=== PATIENT | male | born 1970 | race Caucasian/White ===

== ENCOUNTER 2017-07-09 16:36 | Emergency (ER) | payer BC, OTHER, SELFPAY ==
[2017-07-09] MEDS ORDERED: Sodium Chloride 0.9% 10 ML Syringe FLUSH PRN (16:39)
[2017-07-09] MEDS ORDERED: Sodium Chloride 0.9% 1,000 ML IV SCH (16:45)
[2017-07-09] MEDS ORDERED: HYDROmorphone 1 MG/ML Syringe IVPUSH ONE ×2 (16:46→16:52)
[2017-07-09] MEDS ORDERED: Ondansetron 4 MG/2 ML SDV IVPUSH ONE (16:48)
[2017-07-09 16:59] LABS: CHLORIDE,CL 104 mmol/L (98-107); SODIUM,NA 143 mmol/L (136-145)
--- NOTE | 2017-07-09 17:41 | EDM.PDOC ---
ED HPI GENERAL MEDICAL PROBLEM - General Chief Complaint: General Stated Complaint: left flank pain Time Seen by Provider: 07/09/17 16:50 Source of Information: Reports: Patient History Limitations: Reports: No Limitations - History of Present Illness INITIAL COMMENTS - FREE TEXT/NARRATIVE: Patient is a 47-year-old who was seen in the emergency room with chief complaint of left flank pain patient stated that he was working on his basement when all of a sudden patient developed severe left flank pain about 10 out of 10 he denies hematuria or any history of nephrolithiasis Onset: Sudden Duration: Minutes: Location: Reports: Abdomen Quality: Reports: Sharp Severity: Severe Improves with: Reports: Medication Worsens with: Reports: None Context: Reports: Sick Contact Associated Symptoms: Reports: Other (Severe left flank pain) Left Flank Pain Score (Numeric/FACES): 10 - Related Data Allergies Allergy/AdvReac Type Severity Reaction Status Date / Time bee pollen Allergy Shortness Verified 07/09/17 16:40 of Breath Home Meds: Home Meds . [No Known Home Meds] 07/09/17 [History] Past Medical History - Past Health History Medical/Surgical History: Denies Medical/Surgical History Social & Family History - Tobacco Use Smoking Status *Q: Current Every Day Smoker Years of Tobacco use: 25 Packs/Tins Daily: 1 - Caffeine Use Caffeine Use: Reports: Soda Other Caffeine Use: 'MAYBE A SODA EVERY 4 DAYS OR SO' - Alcohol Use Days Per Week of Alcohol Use: 3 Number of Drinks Per Day: 6 Total Drinks Per Week: 18 - Recreational Drug Use Recreational Drug Use: No - Living Situation & Occupation Living situation: Reports: Single, Other Occupation: Employed ED ROS GENERAL - Review of Systems Review Of Systems: See Below Constitutional: Reports: No Symptoms HEENT: Reports: No Symptoms Respiratory: Reports: No Symptoms Cardiovascular: Reports: No Symptoms Endocrine: Reports: No Symptoms GI/Abdominal: Reports: No Symptoms : Reports: No Symptoms Musculoskeletal: Reports: No Symptoms Skin: Reports: No Symptoms Neurological: Reports: No Symptoms Psychiatric: Reports: No Symptoms Hematologic/Lymphatic: Reports: No Symptoms Immunologic: Reports: No Symptoms ED EXAM, GENERAL - Physical Exam Exam: See Below Exam Limited By: No Limitations General Appearance: Alert, WD/WN, No Apparent Distress Ears: Normal External Exam, Normal Canal, Hearing Grossly Normal, Normal TMs Nose: Normal Inspection, Normal Mucosa, No Blood Throat/Mouth: Normal Inspection, Normal Lips, Normal Teeth, Normal Gums, Normal Oropharynx, Normal Voice, No Airway Compromise Head: Atraumatic, Normocephalic Neck: Normal Inspection, Supple, Non-Tender, Full Range of Motion Respiratory/Chest: No Respiratory Distress, Lungs Clear, Normal Breath Sounds, No Accessory Muscle Use, Chest Non-Tender Cardiovascular: Normal Peripheral Pulses, Regular Rate, Rhythm, No Edema, No Gallop, No JVD, No Murmur, No Rub GI/Abdominal: Normal Bowel Sounds, Tender, Other (CVA tenderness to percussion and palpation) (Male) Exam: Deferred Rectal (Males) Exam: Deferred Back Exam: CVA Tenderness (L) Extremities: Normal Inspection, Normal Range of Motion, Non-Tender, Normal Capillary Refill, No Pedal Edema Neurological: Alert, Oriented, CN II-XII Intact, Normal Cognition, Normal Gait, Normal Reflexes, No Motor/Sensory Deficits Psychiatric: Normal Affect, Normal Mood Skin Exam: Warm, Dry, Intact, Normal Color, No Rash Lymphatic: No Adenopathy Course - Vital Signs Last Recorded V/S: Last Vital Signs Temp 97.7 F 07/09/17 17:54 Pulse 89 07/09/17 17:54 Resp 20 07/09/17 16:41 BP 144/94 H 07/09/17 17:54 Pulse Ox 100 07/09/17 17:54 - Orders/Labs/Meds Labs: Laboratory Tests 07/09/17 07/09/17 Range/Units 16:40 16:40 WBC 12.5 H (4.0-10.2) K/uL RBC 4.89 (4.33-5.41) M/uL Hgb 14.7 (13.1-16.8) g/dL Hct 42.1 (39.0-49.0) % MCV 86.1 (84.0-98.0) fL MCH 30.1 (28.2-33.3) pg MCHC 34.9 (31.7-36.0) g/dL RDW 12.7 (11.2-14.1) % Plt Count 379 H D (150-350) K/uL Neut % (Auto) 61.0 (45.0-80.0) % Lymph % (Auto) 24.9 (10.0-50.0) % [place] % (Auto) 12.7 (2.0-14.0) % Eos % (Auto) 1.0 (0.0-5.0) % Baso % (Auto) 0.4 (0.0-2.0) % Neut # (Auto) 7.60 H (1.40-7.00) K/uL Lymph # (Auto) 3.10 (0.50-3.50) K/uL [place] # (Auto) 1.58 H (0.00-1.00) K/uL Eos # (Auto) 0.13 (0.00-0.50) K/uL Baso # (Auto) 0.05 (0.00-0.20) K/uL Sodium 143 (136-145) mmol/L Potassium 3.0 L (3.5-5.1) mmol/L Chloride 104 (98-107) mmol/L Carbon Dioxide 24.3 (21.0-32.0) mmol/L BUN 22 H (7-18) mg/dL Creatinine 1.10 (0.51-1.17) mg/dL Est Cr Clr Drug Dosing 76.53 mL/min Estimated GFR (MDRD) > 60 mL/min Glucose 133 H (74-106) mg/dL Calcium 9.8 (8.5-10.1) mg/dL Meds: Medications Discontinued Medications Generic Name Dose Route Start Last Admin Trade Name Freq PRN Reason Stop Dose Admin Hydromorphone HCl 22 mg 07/09/17 16:46 07/09/17 16:54 Dilaudid IVPUSH 07/09/17 16:47 Not Given ONETIME ONE Hydromorphone HCl 2 mg 07/09/17 16:52 07/09/17 16:55 Dilaudid IVPUSH 07/09/17 16:53 1 mg ONETIME ONE Administration Sodium Chloride 1,000 mls @ 999 mls/hr 07/09/17 16:45 07/09/17 16:54 Normal Saline IV 07/09/17 17:46 999 mls/hr ASDIRECTED YONI Administration Ketorolac Tromethamine 30 mg 07/09/17 17:44 07/09/17 17:51 Toradol IVPUSH 07/09/17 17:45 30 mg ONETIME ONE Administration Ondansetron HCl 4 mg 10/14/17 16:48 07/09/17 16:52 Zofran IVPUSH 07/09/17 16:49 4 mg ONETIME ONE Administration Sodium Chloride 10 ml 07/09/17 16:39 07/09/17 17:21 Saline Flush FLUSH 10 ml ASDIRECTED PRN Administration Keep Vein Open Departure - Departure Time of Disposition: 17:43 Disposition: Home, Self-Care 01 Condition: Fair Clinical Impression: Nephrolithiasis - Discharge Information Instructions: Kidney Stones, Hydromorphone injection, Ketorolac tablets Referrals: Rhys Sethi SHIRT SEWER [Primary Care Provider] - Forms: ED Department Discharge Care Plan Goals: Take Toradol 10 mg by mouth every 6 hours as needd for pain, your last dose was at 5:50pm. Strain urine if stone is found bring in to hospital lab or regular provider office.
[2017-07-09] MEDS ORDERED: Ketorolac 30 MG/ML SDV IVPUSH ONE (17:44)
[2017-07-09 17:56] VITALS: BP 144/94
== END 2017-07-09 18:00 | disposition home or self-care (01) ==
LOC: LL.ED 16:36
DX: N20.0 Calculus of kidney (principal); F17.210 Nicotine dependence, cigarettes, uncomplicated; Z91.030 Bee allergy status
CPT/HCPCS: 36415; 74176; 80048; 85025; 96361; 96374; 96375; 99284; J1170; J1885; J2405; J7030; J7050

== ENCOUNTER 2017-10-16 20:21 | Emergency (ER) | payer BC ==
[2017-10-16] MEDS ORDERED: Sodium Chloride 0.9% 10 ML Syringe FLUSH PRN (20:35)
[2017-10-16] MEDS ORDERED: Sodium Chloride 0.9% 1,000 ML IV ONE (20:36)
[2017-10-16] MEDS ORDERED: Ondansetron 4 MG/2 ML SDV IVPUSH ONE (20:36)
--- NOTE | 2017-10-16 20:59 | EDM.PDOC ---
ED HPI GENERAL MEDICAL PROBLEM - General Chief Complaint: Abdominal Pain Stated Complaint: abdominal pain Time Seen by Provider: 10/16/17 20:22 Source of Information: Reports: Patient, Family History Limitations: Reports: No Limitations - History of Present Illness INITIAL COMMENTS - FREE TEXT/NARRATIVE: Patient brought to ER by private vehicle for complaint of abdominal pain. Significant other and patient relate that he has had intermittent abdominal cramping starting yesterday. Has had single large loose stool yesterday and again today. Non-bloody in appearance. Nauseated but no emesis. No fevers. Had recent URI with some sinus congestion but denies sore throat/ear pain/cough/ SOB. No changes. No other pain complaints. Pain improved this morning for a while after he ate some pancakes. It also improves after passing gas or having a bowel movement. No worsening with eating or drinking. No one else sick at home. abdominal Pain Score (Numeric/FACES): 7 - Related Data Allergies Allergy/AdvReac Type Severity Reaction Status Date / Time bee pollen Allergy Shortness Verified 10/16/17 20:22 of Breath Home Meds: Home Meds Omeprazole [priLOSEC OTC] 3 tab PO ASDIRECTED 10/16/17 [History] Past Medical History Psychiatric History: Reports: Anxiety, Depression, Other (See Below) (Concern for Methamphetamine use) Social & Family History - Tobacco Use Smoking Status *Q: Current Every Day Smoker Years of Tobacco use: 25 Packs/Tins Daily: 1 - Caffeine Use Caffeine Use: Reports: Soda Other Caffeine Use: 'MAYBE A SODA EVERY 4 DAYS OR SO' - Alcohol Use Days Per Week of Alcohol Use: 3 Number of Drinks Per Day: 6 Total Drinks Per Week: 18 - Recreational Drug Use Recreational Drug Use: No - Living Situation & Occupation Living situation: Reports: Single, Other Occupation: Employed ED ROS GENERAL - Review of Systems Review Of Systems: See Below Constitutional: Reports: Malaise, Fatigue, Decreased Appetite. Denies: Fever, Chills, Weakness, Night Sweats, Diaphoresis HEENT: Reports: Sinus Problem (some congestion). Denies: Dental Pain, Ear Pain , Rhinitis, Throat Pain, Throat Swelling, Vertigo, Vision Change Respiratory: Reports: No Symptoms Cardiovascular: Reports: No Symptoms. Denies: Chest Pain Endocrine: Reports: No Symptoms GI/Abdominal: Reports: Abdominal Pain, Diarrhea, Decreased Appetite, Flatus, Nausea. Denies: Black Stool, Bloody Stool, Constipation, Difficulty Swallowing , Distension, Hematemesis, Hematochezia, Melena, Mucous in Stool, Stool Incontinence, Vomiting : Reports: No Symptoms Musculoskeletal: Reports: No Symptoms Skin: Reports: No Symptoms Neurological: Reports: No Symptoms. Denies: Headache Psychiatric: Reports: No Symptoms Hematologic/Lymphatic: Reports: No Symptoms ED EXAM, GI/ABD - Physical Exam Exam: See Below Exam Limited By: No Limitations General Appearance: Alert, WD/WN, Anxious, Mild Distress Eyes: Bilateral: Normal Appearance, EOMI Ears: Normal External Exam Nose: No: Nasal Deformity, Nasal Swelling, Nasal Drainage Throat/Mouth: Normal Inspection, Normal Lips, Normal Voice, No Airway Compromise Head: Atraumatic, Normocephalic Neck: Normal Inspection, Supple, Non-Tender, Full Range of Motion. No: Carotid Bruit, Lymphadenopathy (L), Lymphadenopathy (R) Respiratory/Chest: No Respiratory Distress, Lungs Clear, Normal Breath Sounds, No Accessory Muscle Use, Chest Non-Tender Cardiovascular: Normal Peripheral Pulses, Regular Rate, Rhythm, No Edema, No Murmur GI/Abdominal Exam: Soft, Non-Tender, No Distention, No Abnormal Bruit, Abnormal Bowel Sounds (diminished throughout) (Male) Exam: Deferred Rectal (Males) Exam: Deferred Back Exam: Normal Inspection, Full Range of Motion. No: CVA Tenderness (L), CVA Tenderness (R), Paraspinal Tenderness, Vertebral Tenderness Extremities: Normal Inspection, Normal Range of Motion, Non-Tender, No Pedal Edema, Normal Capillary Refill Neurological: Alert, Oriented, Normal Cognition, Normal Gait, No Motor/Sensory Deficits Psychiatric: Anxious Skin Exam: Warm, Dry, Intact, Normal Color, No Rash Lymphatic: No Adenopathy Course - Vital Signs Last Recorded V/S: Last Vital Signs Temp 36.9 C 10/16/17 20:25 Pulse 77 10/16/17 21:54 Resp 16 10/16/17 20:25 BP 151/117 H 10/16/17 21:54 Pulse Ox 100 10/16/17 21:34 - Orders/Labs/Meds Orders: Active Orders 24 hr Category Date Time Status Abdomen 2V AP Flat Upright [CR] Stat Exams 10/16/17 20:53 Ordered DRUG SCREEN, URINE [URCHEM] Stat Lab 10/16/17 20:22 Uncollected UA W/MICROSCOPIC [URIN] Stat Lab 10/16/17 20:22 Uncollected Sodium Chloride 0.9% [Saline Flush] Med 10/16/17 20:35 Ordered 10 ml FLUSH ASDIRECTED PRN Saline Lock Insert [OM.PC] Stat Oth 10/16/17 20:35 Ordered Medication Orders Sodium Chloride (Saline Flush) 10 ml FLUSH ASDIRECTED PRN PRN Reason: Keep Vein Open Labs: Laboratory Tests 10/16/17 10/16/17 10/16/17 Range/Units 20:48 20:48 20:48 WBC 6.7 (4.0-10.2) K/uL RBC 4.49 (4.33-5.41) M/uL Hgb 13.4 (13.1-16.8) g/dL Hct 39.1 (39.0-49.0) % MCV 87.1 (84.0-98.0) fL MCH 29.8 (28.2-33.3) pg MCHC 34.3 (31.7-36.0) g/dL RDW 13.2 (11.2-14.1) % Plt Count 238 D (150-350) K/uL Neut % (Auto) 65.6 (45.0-80.0) % Lymph % (Auto) 21.9 (10.0-50.0) % [place] % (Auto) 10.1 (2.0-14.0) % Eos % (Auto) 2.1 (0.0-5.0) % Baso % (Auto) 0.3 (0.0-2.0) % Neut # (Auto) 4.40 (1.40-7.00) K/uL Lymph # (Auto) 1.47 (0.50-3.50) K/uL [place] # (Auto) 0.68 (0.00-1.00) K/uL Eos # (Auto) 0.14 (0.00-0.50) K/uL Baso # (Auto) 0.02 (0.00-0.20) K/uL Sodium 142 (136-145) mmol/L Potassium 3.6 (3.5-5.1) mmol/L Chloride 104 (98-107) mmol/L Carbon Dioxide 25.0 (21.0-32.0) mmol/L BUN 12 (7-18) mg/dL Creatinine 0.82 (0.51-1.17) mg/dL Est Cr Clr Drug Dosing 98.96 mL/min Estimated GFR (MDRD) > 60 mL/min Glucose 102 (74-106) mg/dL Lactic Acid 0.8 (0.4-2.0) mmol/L Calcium 9.0 (8.5-10.1) mg/dL Total Bilirubin 0.7 (0.2-1.0) mg/dL AST 23 (15-37) U/L ALT 40 (12-78) U/L Alkaline Phosphatase 76 (46-116) IU/L Total Protein 6.9 (6.4-8.2) g/dL Albumin 3.8 (3.4-5.0) g/dL Amylase (25-115) U/L Ethyl Alcohol (0.000-0.080) g/dL 10/16/17 10/16/17 Range/Units 20:48 20:53 WBC (4.0-10.2) K/uL RBC (4.33-5.41) M/uL Hgb (13.1-16.8) g/dL Hct (39.0-49.0) % MCV (84.0-98.0) fL MCH (28.2-33.3) pg MCHC (31.7-36.0) g/dL RDW (11.2-14.1) % Plt Count (150-350) K/uL Neut % (Auto) (45.0-80.0) % Lymph % (Auto) (10.0-50.0) % [place] % (Auto) (2.0-14.0) % Eos % (Auto) (0.0-5.0) % Baso % (Auto) (0.0-2.0) % Neut # (Auto) (1.40-7.00) K/uL Lymph # (Auto) (0.50-3.50) K/uL [place] # (Auto) (0.00-1.00) K/uL Eos # (Auto) (0.00-0.50) K/uL Baso # (Auto) (0.00-0.20) K/uL Sodium (136-145) mmol/L Potassium (3.5-5.1) mmol/L Chloride (98-107) mmol/L Carbon Dioxide (21.0-32.0) mmol/L BUN (7-18) mg/dL Creatinine (0.51-1.17) mg/dL Est Cr Clr Drug Dosing mL/min Estimated GFR (MDRD) mL/min Glucose (74-106) mg/dL Lactic Acid (0.4-2.0) mmol/L Calcium (8.5-10.1) mg/dL Total Bilirubin (0.2-1.0) mg/dL AST (15-37) U/L ALT (12-78) U/L Alkaline Phosphatase (46-116) IU/L Total Protein (6.4-8.2) g/dL Albumin (3.4-5.0) g/dL Amylase 38 (25-115) U/L Ethyl Alcohol 0.003 (0.000-0.080) g/dL Meds: Medications Generic Name Dose Route Start Last Admin Trade Name Freq PRN Reason Stop Dose Admin Sodium Chloride 10 ml 10/16/17 20:35 Saline Flush FLUSH ASDIRECTED PRN Keep Vein Open Discontinued Medications Generic Name Dose Route Start Last Admin Trade Name Freq PRN Reason Stop Dose Admin Sodium Chloride 1,000 mls @ 999 mls/hr 10/16/17 20:36 10/16/17 20:53 Normal Saline IV 10/16/17 21:36 999 mls/hr .BOLUS ONE Administration Ketorolac Tromethamine 30 mg 10/16/17 21:01 10/16/17 21:24 Toradol IVPUSH 10/16/17 21:02 30 mg ONETIME ONE Administration Loperamide HCl 4 mg 10/16/17 21:01 10/16/17 21:42 Imodium Ad PO 10/16/17 21:02 4 mg ONETIME ONE Administration Metoprolol Tartrate 25 mg 10/16/17 21:50 10/16/17 21:54 Lopressor PO 10/16/17 21:51 25 mg ONETIME ONE Administration Ondansetron HCl 4 mg 10/16/17 20:36 10/16/17 20:50 Zofran IVPUSH 10/16/17 20:37 4 mg ONETIME ONE Administration - Re-Assessments/Exams Free Text/Narrative Re-Assessment/Exam: 10/16/17 21:00 Labs drawn. Abdominal film ordered. IV NS bolus, Zofran, Toradol given. Imodium also ordered. Free Text/Narrative Re-Assessment/Exam: 10/16/17 21:35 All blood labs normal. Abdominal films showed no air/fluid levels. Patient has not provided a urine specimen. He denies having UTI symptoms. However UTI could cause similar abdominal complaints. Significant other is concerned that patient was using Meth a few days ago when out with friends. Patient may be avoiding giving us a specimen if this is true. It as explained to him several times that a urine specimen would be helpful in ruling a UTI out as a contributing factor completely. Pain improved with Toradol. Girlfriend said that she gave him a 5mg PO Valium they had at home about two hours prior to presentation as she thought he was having anxiety. Work slip provided for tonight. Patient allowed to leave after IV fluid bolus finished. It was mentioned to him that he could still potentially have a urinary tract infection. It was also mentioned to him that both Marijuana and Methamphetamine could cause the combination of elevated BP and abdominal cramping. Numerous precautions given prior to discharge. He is to follow up tomorrow at the clinic for BP recheck and to get his regular meds refilled. BP elevated after receiving IV bolus. Again, there is concern for Meth use and this could easily be the cause of patient's abdominal pain complaint as well as the elevated BP. Patient did not wish to stay any longer. Single dose Metoprolol given at time of discharge. Just before leaving patient asked if there was anything else we could give to help the abdominal discomfort. He was told that if he could give us a UA to complete the workup that we could consider other medications that could be helpful. Patient again did not want to have a UA performed and left the building. He was walking without problem and joking with significant other at time of discharge. Departure - Departure Time of Disposition: 22:15 Disposition: Home, Self-Care 01 Condition: Good Clinical Impression: Abdominal pain Qualifiers: Abdominal location: generalized Qualified Code(s): R10.84 - Generalized abdominal pain Diarrhea Qualifiers: Diarrhea type: unspecified type Qualified Code(s): R19.7 - Diarrhea, unspecified Hypertension Qualifiers: Hypertension type: essential hypertension Qualified Code(s): I10 - Essential ( primary) hypertension - Discharge Information Referrals: Rhys Sethi NP [Primary Care Provider] - Forms: ED Department Discharge Additional Instructions: Follow up tomorrow at clinic for BP recheck and med refills. Watch for changes in symptoms and follow up as needed if there are other problems. Advance diet as tolerated. - My Orders Last 24 Hours: My Active Orders 10/16/17 20:22 DRUG SCREEN, URINE [URCHEM] Stat UA W/MICROSCOPIC [URIN] Stat 10/16/17 20:35 Sodium Chloride 0.9% [Saline Flush] 10 ml FLUSH ASDIRECTED PRN Saline Lock Insert [OM.PC] Stat 10/16/17 20:53 Abdomen 2V AP Flat Upright [CR] Stat - Assessment/Plan Last 24 Hours: My Active Orders 10/16/17 20:22 DRUG SCREEN, URINE [URCHEM] Stat UA W/MICROSCOPIC [URIN] Stat 10/16/17 20:35 Sodium Chloride 0.9% [Saline Flush] 10 ml FLUSH ASDIRECTED PRN Saline Lock Insert [OM.PC] Stat 10/16/17 20:53 Abdomen 2V AP Flat Upright [CR] Stat
[2017-10-16] MEDS ORDERED: Loperamide 2 MG Tab PO ONE (21:01)
[2017-10-16] MEDS ORDERED: Ketorolac 30 MG/ML SDV IVPUSH ONE (21:01)
[2017-10-16 21:05] LABS: CHLORIDE,CL 104 mmol/L (98-107); SODIUM,NA 142 mmol/L (136-145)
[2017-10-16] MEDS ORDERED: Metoprolol Tartrate 25 MG Tab PO ONE (21:50)
[2017-10-16 21:55] VITALS: BP 151/117
== END 2017-10-16 22:05 | disposition home or self-care (01) ==
LOC: LL.ED 20:21
DX: R10.9 Unspecified abdominal pain (principal); R19.7 Diarrhea, unspecified; I10 Essential (primary) hypertension; F17.210 Nicotine dependence, cigarettes, uncomplicated; Z91.030 Bee allergy status
CPT/HCPCS: 36415; 74019; 80053; 82150; 83605; 85025; 96361; 96374; 96375; 99284; A9270-GY; G0480; J1885; J2405; J7030

== ENCOUNTER 2019-03-08 20:39 | Emergency (ER) | payer OTHER ==
[2019-03-08 20:51] VITALS: BP 147/81
--- NOTE | 2019-03-08 21:00 | EDM.PDOC ---
ED HPI GENERAL MEDICAL PROBLEM - General Chief Complaint: Upper Extremity Injury/Pain Stated Complaint: puncture hand with welding wire Time Seen by Provider: 03/08/19 20:40 Source of Information: Reports: Patient History Limitations: Reports: No Limitations - History of Present Illness INITIAL COMMENTS - FREE TEXT/NARRATIVE: Patient sent here from [facility] to have puncture wound of middle finger left hand evaluated. Injury was from welding wire. Patient has no complaints. No numbness/tingling. No pain at this time. Tetanus UTD. - Related Data Allergies Allergy/AdvReac Type Severity Reaction Status Date / Time bee pollen Allergy Shortness Verified 03/08/19 20:42 of Breath Home Meds: Home Meds Omeprazole [priLOSEC OTC] 3 tab PO ASDIRECTED 10/16/17 [History] Unknown 03/08/19 [History] Past Medical History - Past Health History Medical/Surgical History: Denies Medical/Surgical History HEENT History: Reports: Impaired Vision Other HEENT History: dose not wear glasses or contacts Genitourinary History: Reports: Renal Calculus Psychiatric History: Reports: Anxiety, Depression, Other (See Below) (Concern for Methamphetamine use) Dermatologic History: Reports: Other (See Below) Other Dermatologic History: folicule dermatitis Social & Family History - Tobacco Use Smoking Status *Q: Current Every Day Smoker Years of Tobacco use: 30 Packs/Tins Daily: 1 Second Hand Smoke Exposure: Yes - Caffeine Use Caffeine Use: Reports: Soda Other Caffeine Use: 'MAYBE A SODA EVERY 4 DAYS OR SO' - Recreational Drug Use Recreational Drug Use: No - Living Situation & Occupation Living situation: Reports: Single, Other Occupation: Employed Review of Systems - Review of Systems Review Of Systems: ROS reveals no pertinent complaints other than HPI. ED EXAM, GENERAL - Physical Exam Exam: See Below Exam Limited By: No Limitations General Appearance: Alert, WD/WN, No Apparent Distress Eye Exam: Bilateral Eye: EOMI, PERRL Head: Atraumatic, Normocephalic Neck: Supple Respiratory/Chest: No Respiratory Distress Extremities: Other (examination of left hand shows small punctate wound with no active bleeding middle finger left hand. Able to flex and extend finger well. No swelling or redness. ) Neurological: Alert, Normal Cognition, Normal Gait, No Motor/Sensory Deficits Psychiatric: Normal Affect, Normal Mood Course - Vital Signs Last Recorded V/S: Last Vital Signs Temp 36.4 C 03/08/19 20:50 Pulse 98 03/08/19 20:50 Resp 18 03/08/19 20:50 BP 147/81 H 03/08/19 20:50 Pulse Ox 97 03/08/19 20:50 - Re-Assessments/Exams Free Text/Narrative Re-Assessment/Exam: 03/08/19 21:04 Puncture wound documented for Phi. Wound care reviewed with patient. Precautions reviewed. Discharge home. Follow up as needed if any problems develop. Recheck BP recommended intermittently to see if overall it remains elevated or improves to better range. Departure - Departure Time of Disposition: 20:59 Disposition: Home, Self-Care 01 Condition: Good Clinical Impression: Puncture wound of finger of left hand Qualifiers: Encounter type: initial encounter Qualified Code(s): S61.239A - Puncture wound without foreign body of unspecified finger without damage to nail, initial encounter Hypertension Qualifiers: Hypertension type: essential hypertension Qualified Code(s): I10 - Essential ( primary) hypertension - Discharge Information *PRESCRIPTION DRUG MONITORING PROGRAM REVIEWED*: Not Applicable *COPY OF PRESCRIPTION DRUG MONITORING REPORT IN PATIENT IVETH: Not Applicable Instructions: Puncture Wound, [id number] Forms: ED Department Discharge Additional Instructions: Observe for changes. Follow up as needed if signs of infection or other problems develop.
== END 2019-03-08 21:37 | disposition home or self-care (01) ==
LOC: LL.ED 20:39
DX: S61.233A Puncture wound without foreign body of left middle finger without damage to nail, initial encounter (principal); F17.210 Nicotine dependence, cigarettes, uncomplicated; I10 Essential (primary) hypertension; Y99.0 Civilian activity done for income or pay; Z79.899 Other long term (current) drug therapy; W45.8XXA Other foreign body or object entering through skin, initial encounter; Z91.030 Bee allergy status
CPT/HCPCS: 99282

== ENCOUNTER 2020-04-22 01:17 | Emergency (ER) | payer MEDICAID, OTHER ==
[2020-04-22] MEDS ORDERED: Tetracaine HCl/PF 0.5% 4 ML Bottle EYEBOTH ONE (01:18)
[2020-04-22] MEDS ORDERED: Acetaminophen/oxyCODONE 325-5 MG Tab PO ONE ×2 (01:22→01:51)
[2020-04-22 01:46] VITALS: BP 165/87; PULSE 81
--- NOTE | 2020-04-22 01:58 | EDM.PDOC ---
ED HPI GENERAL MEDICAL PROBLEM - General Chief Complaint: ENT Problem Stated Complaint: BILAT EYE PAIN Time Seen by Provider: 04/22/20 01:18 Source of Information: Reports: Patient History Limitations: Reports: No Limitations - History of Present Illness INITIAL COMMENTS - FREE TEXT/NARRATIVE: Sudden severe bilateral eye irritation and pain that started around 10pm. 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 He recalls feeling some grit get into his eyes so he the went to get protective glasses and a face shield for rest of job. Other than the initial mild irritation he had no problems that he can recall. Things went well for rest of day. [place] some irritation develop shortly before 10pm. Rubbed his eyes and pain developed. Also photophobia. Clear tears. No obvious vision change reported. - Related Data Allergies Allergy/AdvReac Type Severity Reaction Status Date / Time bee pollen Allergy Shortness Verified 04/22/20 01:18 of Breath Home Meds: Home Meds Omeprazole [priLOSEC OTC] 3 tab PO ASDIRECTED 10/16/17 [History] Past Medical History - Past Health History Medical/Surgical History: Denies Medical/Surgical History HEENT History: Reports: Impaired Vision Other HEENT History: dose not wear glasses or contacts Genitourinary History: Reports: Renal Calculus Psychiatric History: Reports: Anxiety, Depression, Other (See Below) Dermatologic History: Reports: Other (See Below) Other Dermatologic History: folicule dermatitis Social & Family History - Tobacco Use Smoking Status *Q: Former Smoker Years of Tobacco use: 31 Packs/Tins Daily: 1 Used Tobacco, but Quit: No - Caffeine Use Caffeine Use: Reports: Soda Other Caffeine Use: 'MAYBE A SODA EVERY 4 DAYS OR SO' - Living Situation & Occupation Living situation: Reports: Single, Other Occupation: Employed ED ROS GENERAL - Review of Systems Review Of Systems: See Below Constitutional: Reports: No Symptoms HEENT: Reports: Eye Discharge, Eye Pain. Denies: Vision Change Respiratory: Reports: No Symptoms Cardiovascular: Reports: No Symptoms GI/Abdominal: Reports: No Symptoms : Reports: No Symptoms Musculoskeletal: Reports: No Symptoms Skin: Reports: No Symptoms Neurological: Reports: No Symptoms Psychiatric: Reports: No Symptoms ED EXAM, GENERAL - Physical Exam Exam: See Below Exam Limited By: No Limitations General Appearance: Alert, Moderate Distress Eye Exam: Bilateral Eye: Conjunctival Injection (mild), Corneal Abrasion (small speck noted right cornea around 4 oclock, small abrasion noted around 4oclock left cornea. ), EOMI, PERRL Ears: Hearing Grossly Normal Nose: No: Nasal Deformity, Nasal Swelling, Nasal Drainage Throat/Mouth: Normal Lips, Normal Voice, No Airway Compromise Respiratory/Chest: No Respiratory Distress Neurological: Alert, Oriented, CN II-XII Intact, Normal Cognition, Normal Gait Psychiatric: Anxious Skin Exam: Warm, Dry Course - Vital Signs Last Recorded V/S: Last Vital Signs Temp 36.7 C 04/22/20 01:20 Pulse 81 04/22/20 01:20 Resp 18 04/22/20 01:20 BP 165/87 H 04/22/20 01:20 Pulse Ox 98 04/22/20 01:20 - Orders/Labs/Meds Meds: Medications Discontinued Medications Generic Name Dose Route Start Last Admin Trade Name Maia PRN Reason Stop Dose Admin Oxycodone/Acetaminophen 1 tab 04/22/20 01:22 04/22/20 01:28 Percocet 325-5 Mg PO 04/22/20 01:23 1 tab ONETIME ONE Administration Oxycodone/Acetaminophen 1 tab 04/22/20 01:51 Percocet 325-5 Mg PO 04/22/20 01:52 ONETIME ONE Tetracaine HCl 1 ml 04/22/20 01:18 04/22/20 01:29 Tetracaine 0.5% Steri-Unit Crystal EYEBOTH 04/22/20 01:19 2 drop ASDIRECTED ONE Administration - Re-Assessments/Exams Free Text/Narrative Re-Assessment/Exam: 04/22/20 01:58 Unusual presentation--delayed pain development, bilateral involvement. 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 Does appear to have very mild abrasion but no obvious FB noted. Possible chemical sensitivity to something he was exposed to earlier. Pain almost completely resolved after Tetracaine drops instilled. Patient reports he has normal vision. 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 He recommended starting antibiotic ointment and having patient follow up this morning at their clinic for slit lamp eval. Patient in agreement with plan. Departure - Departure Time of Disposition: 02:01 Disposition: Home, Self-Care 01 Condition: Good Clinical Impression: Conjunctivitis Qualifiers: Conjunctivitis type: unspecified Laterality: bilateral Qualified Code(s): H10.9 - Unspecified conjunctivitis Corneal abrasion, bilateral Qualifiers: Encounter type: initial encounter Qualified Code(s): S05.01XA - Injury of conjunctiva and corneal abrasion without foreign body, right eye, initial encounter; S05.02XA - Injury of conjunctiva and corneal abrasion without foreign body, left eye, initial encounter - Discharge Information *PRESCRIPTION DRUG MONITORING PROGRAM REVIEWED*: Not Applicable *COPY OF PRESCRIPTION DRUG MONITORING REPORT IN PATIENT IVETH: Not Applicable Instructions: Eye Foreign Body, [id number], Corneal Abrasion, [id number] Referrals: Radha Lopez PA-C [Primary Care Provider] - Forms: ED Department Discharge, ED Return to Work/School Form Additional Instructions: Apply antibiotic ointment every 4-6 hours. Present to the [facility] at 8am this morning when they open. Tell them that you were instructed to be there by when we spoke with him tonight. recommended slit lamp evaluation to see if additional treatment is needed. You can also call them to arrange an appointment time, but it is unknown when they would have you arrive during the day. OK to take ibuprofen or aleve. Avoid tylenol for next 6 hours as you received some here. Follow up as recommended by [facility]. Sepsis Event Note (ED) - Evaluation Sepsis Screening Result: No Definite Risk - Focused Exam Vital Signs: Vital Signs Temp Pulse Resp BP Pulse Ox 04/22/20 01:20 36.7 C 81 18 165/87 H 98
[2020-04-22] MEDS ORDERED: Erythromycin Base 0.5% Ophth Oint 3.5 GM Tube EYEBOTH ONE (02:01)
== END 2020-04-22 01:55 | disposition home or self-care (01) ==
LOC: LL.ED 01:17
DX: S05.01XA Injury of conjunctiva and corneal abrasion without foreign body, right eye, initial encounter (principal); S05.02XA Injury of conjunctiva and corneal abrasion without foreign body, left eye, initial encounter; H10.9 Unspecified conjunctivitis; Z87.891 Personal history of nicotine dependence; Z91.030 Bee allergy status; X58.XXXA Exposure to other specified factors, initial encounter
CPT/HCPCS: 99283; A9270

== ENCOUNTER 2020-07-07 04:52 | Emergency (ER) | payer MEDICAID ==
[2020-07-07 04:54] VITALS: BP 172/89; PULSE 103
[2020-07-07] MEDS ORDERED: Tetracaine HCl/PF 0.5% 4 ML Bottle EYEBOTH ONE (05:08)
[2020-07-07] MEDS ORDERED: Acetaminophen/oxyCODONE 325-5 MG Tab PO ONE (05:33)
[2020-07-07] MEDS ORDERED: Ketorolac 10 MG Tab PO ONE (05:34)
--- NOTE | 2020-07-07 05:43 | EDM.PDOC ---
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 Has had Arc burn before and this is the same. No history of fb exposure. Bilateral eye discomfort/watery eyes. Eye Pain Score (Numeric/FACES): 10 - Related Data Allergies Allergy/AdvReac Type Severity Reaction Status Date / Time bee pollen Allergy Shortness Verified 04/22/20 01:18 of Breath Past Medical History - Past Health History Medical/Surgical History: Denies Medical/Surgical History HEENT History: Reports: Impaired Vision Other HEENT History: dose not wear glasses or contacts Genitourinary History: Reports: Renal Calculus Psychiatric History: Reports: Anxiety, Depression, Other (See Below) Dermatologic History: Reports: Other (See Below) Other Dermatologic History: folicule dermatitis Social & Family History - Caffeine Use Caffeine Use: Reports: Soda Other Caffeine Use: 'MAYBE A SODA EVERY 4 DAYS OR SO' - Living Situation & Occupation Living situation: Reports: Single, Other Occupation: Employed ED ROS GENERAL - Review of Systems Review Of Systems: See Below HEENT: Reports: Eye Pain, Other (watery eyes) ED EXAM GENERAL W FULL EYE - Physical Exam Exam: See Below Exam Limited By: Other (refuses to open eyes) General Appearance: Other (uncomfortable, sitting in dark room) Eyelids: Bilateral: Normal Appearance Comments: Patient refused to open eye for exam due to discomfort. Unable to perform visual acuity/staining/closer examination Throat/Mouth: Normal Voice, No Airway Compromise Head: Atraumatic. No: Facial Swelling Neck: Supple Respiratory/Chest: No Respiratory Distress Neurological: Alert, Oriented, Normal Cognition, Normal Gait Psychiatric: Normal Affect, Normal Mood Course - Vital Signs Last Recorded V/S: Last Vital Signs Temp 36.9 C 07/07/20 04:53 Pulse 103 H 07/07/20 04:53 Resp 18 07/07/20 04:53 BP 172/89 H 07/07/20 04:53 Pulse Ox 100 07/07/20 04:53 - Orders/Labs/Meds Meds: Medications Discontinued Medications Generic Name Dose Route Start Last Admin Trade Name Freq PRN Reason Stop Dose Admin Ketorolac Tromethamine 10 mg 07/07/20 05:34 07/07/20 05:38 Toradol PO 07/07/20 05:35 10 mg ONETIME ONE Administration Oxycodone/Acetaminophen 2 tab 07/07/20 05:33 07/07/20 05:38 Percocet 325-5 Mg PO 07/07/20 05:34 2 tab ONETIME ONE Administration Tetracaine HCl 1 ml 07/07/20 05:08 07/07/20 05:14 Tetracaine 0.5% Steri-Unit Crystal EYEBOTH 07/07/20 05:09 1 ml ASDIRECTED ONE Administration - Re-Assessments/Exams Free Text/Narrative Re-Assessment/Exam: 07/07/20 05:39 Attempt to get Tetracaine instilled in patient's eyes partially successful. He would not open eyes for drops fully. Tetracaine did not help much. Patient uncooperative/refused with rest of eye exam citing discomfort. Refused flushing of eyes. 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 Topical ointments/antibiotic solutions not indicated based on best practice recommendations. Pain control focus at this time. Percocet PO dispensed and Rx for additional 12 tabs given to patient. Precautions reviewed/to follow up if not significantly improved by tomorrow morning at local eye provider or ER. Elevated BP noted, suspect due to current discomfort. Recheck when feeling better. Departure - Departure Time of Disposition: 05:43 Disposition: Home, Self-Care 01 Condition: Good Clinical Impression: Welders' keratitis of both eyes - Discharge Information *PRESCRIPTION DRUG MONITORING PROGRAM REVIEWED*: Not Applicable *COPY OF PRESCRIPTION DRUG MONITORING REPORT IN PATIENT IVETH: Not Applicable Instructions: Ultraviolet Keratitis, [id number] Referrals: Radha Lopez PA-C [Primary Care Provider] - Forms: ED Department Discharge, ED Return to Work/School Form Additional Instructions: Rest/cool packs to eyes for comfort. Take Percocet 1-2 tabs every 6 hours as needed for pain. Get eyes rechecked tomorrow at local eye provider or if needed ER if not significantly improved. Follow up otherwise as needed for problems/concerns. Sepsis Event Note (ED) - Evaluation Sepsis Screening Result: No Definite Risk - Focused Exam Vital Signs: Vital Signs Temp Pulse Resp BP Pulse Ox 07/07/20 04:53 36.9 C 103 H 18 172/89 H 100
== END 2020-07-07 05:50 | disposition home or self-care (01) ==
LOC: LL.ED 04:52
DX: H16.133 Photokeratitis, bilateral (principal); Z91.048 Other nonmedicinal substance allergy status
CPT/HCPCS: 99283; A9270

== ENCOUNTER 2020-12-26 21:30 | Emergency (ER) | payer MEDICAID ==
[2020-12-26] MEDS ORDERED: Tetracaine HCl/PF 0.5% 4 ML Bottle ONE (21:57)
[2020-12-26] MEDS ORDERED: Tetracaine HCl/PF 0.5% 4 ML Bottle EYERT ONE (21:58)
[2020-12-26] MEDS ORDERED: Erythromycin Base 0.5% Ophth Oint 3.5 GM Tube EYERT ONE (22:10)
--- NOTE | 2020-12-26 22:17 | EDM.PDOC ---
ED HPI GENERAL MEDICAL PROBLEM - General Chief Complaint: Eye Problems Stated Complaint: object in right eye Time Seen by Provider: 12/26/20 21:52 Source of Information: Reports: Patient History Limitations: Reports: No Limitations - History of Present Illness INITIAL COMMENTS - FREE TEXT/NARRATIVE: Patient has FB right eye since yesterday. Pain started when he was sanding an object. Did go to [facility] today for this but they were unable to get it out. Was supposed to go to ER directly from [facility] but he did not present until late tonight because he "had things to do". Eye has been irrigated without any improvement. No other complaints. - Related Data Allergies Allergy/AdvReac Type Severity Reaction Status Date / Time bee pollen Allergy Shortness Verified 04/22/20 01:18 of Breath Past Medical History - Past Health History Medical/Surgical History: Denies Medical/Surgical History HEENT History: Reports: Impaired Vision Other HEENT History: dose not wear glasses or contacts Genitourinary History: Reports: Renal Calculus Psychiatric History: Reports: Anxiety, Depression, Other (See Below) Dermatologic History: Reports: Other (See Below) Other Dermatologic History: folicule dermatitis Social & Family History - Caffeine Use Caffeine Use: Reports: Soda Other Caffeine Use: 'MAYBE A SODA EVERY 4 DAYS OR SO' - Living Situation & Occupation Living situation: Reports: Single, Other Occupation: Employed ED ROS GENERAL - Review of Systems Review Of Systems: See Below Constitutional: Reports: No Symptoms HEENT: Reports: Eye Pain. Denies: Vision Change Respiratory: Reports: No Symptoms Cardiovascular: Reports: No Symptoms GI/Abdominal: Reports: No Symptoms : Reports: No Symptoms Musculoskeletal: Reports: No Symptoms Skin: Reports: No Symptoms Neurological: Reports: No Symptoms Psychiatric: Reports: No Symptoms ED EXAM GENERAL W FULL EYE - Physical Exam Exam: See Below Exam Limited By: No Limitations General Appearance: Alert, Mild Distress Eye Exam: Right Eye: Conjunctival Injection, Foreign Body, Bilateral Eye: EOMI, PERRL Ears: Hearing Grossly Normal Nose: No: Nasal Deformity, Nasal Swelling, Nasal Drainage Throat/Mouth: Normal Lips, Normal Voice, No Airway Compromise Head: Atraumatic, Normocephalic Neck: Supple Respiratory/Chest: No Respiratory Distress Extremities: Normal Capillary Refill Neurological: Alert, Oriented, Normal Cognition, Normal Gait Psychiatric: Normal Affect, Normal Mood Skin Exam: Warm, Dry, Intact, Normal Color ED EYE w/ Add Procedure - Eye Procedure Alcaine Drops Administered: Yes Eye FB Removal: Removal w/ Needle Antibiotic Oinment/Drps Admin: Right Eye Course - Orders/Labs/Meds Meds: Medications Discontinued Medications Generic Name Dose Route Start Last Admin Trade Name Maia PRN Reason Stop Dose Admin Erythromycin 1 gm 12/26/20 22:10 Erythromycin Base 0.5% Ophth Oint 3.5 Gm Tube EYERT 12/26/20 22:11 ONETIME ONE Tetracaine HCl 1 ml 12/26/20 21:58 Tetracaine Hcl/Pf 0.5% 4 Ml Bottle EYERT 12/26/20 21:59 ASDIRECTED ONE Tetracaine HCl Confirm 12/26/20 21:57 Tetracaine Hcl/Pf 0.5% 4 Ml Bottle Administered 12/26/20 21:58 Dose 4 ml .ROUTE .STK-MED ONE - Re-Assessments/Exams Free Text/Narrative Re-Assessment/Exam: 12/26/20 23:16 FB removed easily with 30g needle. Aftercare reviewed with patient. Antibiotic drops dispensed for Q3 hr use while awake for 4-5 days. To follow up as needed if any problems/concerns. Departure - Departure Time of Disposition: 22:15 Disposition: Home, Self-Care 01 Condition: Good Clinical Impression: Foreign body of right eye Qualifiers: Encounter type: initial encounter Qualified Code(s): T15.91XA - Foreign body on external eye, part unspecified, right eye, initial encounter - Discharge Information *PRESCRIPTION DRUG MONITORING PROGRAM REVIEWED*: Not Applicable *COPY OF PRESCRIPTION DRUG MONITORING REPORT IN PATIENT IVETH: Not Applicable Instructions: Eye Foreign Body, [id number] Referrals: Radha Lopez PA-C [Primary Care Provider] - Forms: ED Department Discharge Additional Instructions: Follow up as needed if you have problems such as worsening eye pain/vision, increasing drainage. Instill 1 drop of the antibiotic drop in your eye every 3 hours while you are awake for the next 4-5 days. Ibuprofen or Tylenol for pain. Follow up otherwise as needed.
[2020-12-27 06:07] VITALS: BP 154/80; PULSE 89
== END 2020-12-26 22:30 | disposition home or self-care (01) ==
LOC: LL.ED 21:30
DX: T15.91XA Foreign body on external eye, part unspecified, right eye, initial encounter (principal); Z91.030 Bee allergy status
CPT/HCPCS: 65205; 99283; 99283-25

== ENCOUNTER 2021-03-26 01:26 | Emergency (ER) | payer MEDICAID ==
[2021-03-26] MEDS ORDERED: Tetracaine HCl/PF 0.5% 4 ML Bottle EYEBOTH ONE (01:39)
[2021-03-26 01:44] VITALS: BP 164/96; PULSE 99
[2021-03-26] MEDS ORDERED: Erythromycin Base 0.5% Ophth Oint 3.5 GM Tube EYEBOTH ONE (01:50)
[2021-03-26] MEDS ORDERED: Acetaminophen/HYDROcodone 325-10 MG Tab PO ONE (01:50)
[2021-03-26] MEDS ORDERED: Ibuprofen 600 MG Tab PO ONE (01:50)
--- NOTE | 2021-03-26 02:06 | EDM.PDOC ---
ED HPI GENERAL MEDICAL PROBLEM - General Chief Complaint: Eye Problems Stated Complaint: bilat. eye pain/redness Time Seen by Provider: 03/26/21 01:40 Source of Information: Reports: Patient History Limitations: Reports: No Limitations - History of Present Illness INITIAL COMMENTS - FREE TEXT/NARRATIVE: Patient patient comes emergency department today from home with concerns of bilateral eye pain. This patient abruptly at 2 AM developed primarily left eye pain and burning. He felt like he had a foreign body under his eyelid. He continually rubbed his left and his right eye. He was concern for a foreign body in his eye so he came to the emergency department. In route to the emergency department he noticed his right eye was starting to become irritated as well. He does not have a foreign body sensation in the right eye. He has no change in his visual acuity. No diplopia. 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 He also was doing some grinding today with a metal wire brush. He did have protective glasses on during that time. His tetanus immunization is up-to-date. Bilateral Eye Pain Score (Numeric/FACES): 10 - Related Data Allergies Allergy/AdvReac Type Severity Reaction Status Date / Time bee pollen Allergy Shortness Verified 03/26/21 01:27 of Breath Home Meds: Home Meds Erythromycin Base [Erythromycin 0.5% Ophth Oint] 1 applic OP Q4HR #1 tube 03/26/21 [Rx] Past Medical History - Past Health History Medical/Surgical History: Denies Medical/Surgical History HEENT History: Reports: Impaired Vision Other HEENT History: dose not wear glasses or contacts Genitourinary History: Reports: Renal Calculus Other Musculoskeletal History: right leg fracture with surgical repair Psychiatric History: Reports: Anxiety, Depression, Other (See Below) Dermatologic History: Reports: Other (See Below) Other Dermatologic History: folicule dermatitis Social & Family History - Caffeine Use Caffeine Use: Reports: None Other Caffeine Use: 'MAYBE A SODA EVERY 4 DAYS OR SO' - Recreational Drug Use Recreational Drug Use: No - Living Situation & Occupation Living situation: Reports: Single, Other Occupation: Employed ED ROS GENERAL - Review of Systems Review Of Systems: Comprehensive ROS is negative, except as noted in HPI. ED EXAM GENERAL W FULL EYE - Physical Exam Exam: See Below Exam Limited By: No Limitations General Appearance: Alert, WD/WN, No Apparent Distress Eye Exam: Left Eye: Corneal Abrasion (3 o'clock position just outside the iris there is a corneal abrasion. No foreign body under either of the eyes bilaterally.), Bilateral Eye: PERRL, Other (The sclera is noninjected. No discharge or drainage) Eyelids: Bilateral: Normal Appearance Conjunctiva & Sclera: Bilateral: Normal Appearance Cornea Exam: Left: Corneal Abrasion, Bilateral: Examined with Flourescein (No foreign bodies) Extraocular Movements: Bilateral: Intact Pupillary Size: Bilateral: 4 mm Pupillary Reaction: Bilateral: Brisk Ears: Normal External Exam Nose: Normal Inspection Throat/Mouth: Normal Inspection Head: Atraumatic, Normocephalic. No: Facial Swelling, Facial Tenderness (Or erythema of the facial skin) Neck: Normal Inspection, Supple Respiratory/Chest: No Respiratory Distress Cardiovascular: Normal Peripheral Pulses Extremities: Normal Inspection Neurological: Alert, Oriented, CN II-XII Intact, Normal Cognition, No Motor/Sensory Deficits Psychiatric: Normal Affect, Normal Mood Skin Exam: Warm, Dry, Intact, Normal Color, No Rash Course - Vital Signs Last Recorded V/S: Last Vital Signs Temp 97.8 F 03/26/21 01:43 Pulse 99 03/26/21 01:43 Resp 17 03/26/21 01:43 BP 164/96 H 03/26/21 01:43 Pulse Ox 97 03/26/21 01:43 - Orders/Labs/Meds Meds: Medications Discontinued Medications Generic Name Dose Route Start Last Admin Trade Name Maia PRN Reason Stop Dose Admin Hydrocodone Bitart/Acetaminophen 1 tab 03/26/21 01:50 03/26/21 02:08 Acetaminophen/Hydrocodone 325-10 Mg Tab PO 03/26/21 01:51 1 tab ONETIME ONE Administration Erythromycin 1 gm 03/26/21 01:50 03/26/21 02:08 Erythromycin Base 0.5% Ophth Oint 3.5 Gm Tube EYEBOTH 03/26/21 01:51 1 applic ONETIME ONE Administration Ibuprofen 600 mg 03/26/21 01:50 03/26/21 02:07 Ibuprofen 600 Mg Tab PO 03/26/21 01:51 600 mg ONETIME ONE Administration Tetracaine HCl 1 ml 03/26/21 01:39 03/26/21 01:42 Tetracaine Hcl/Pf 0.5% 4 Ml Bottle EYEBOTH 03/26/21 01:40 1 ml ASDIRECTED ONE Administration - Re-Assessments/Exams Free Text/Narrative Re-Assessment/Exam: The eye was anesthetized with tetracaine with excellent pain relief. Under fluorescein examination there was no foreign bodies identified. There is a noted corneal abrasion on the medial aspect of the left thigh just outside the iris. Rest of the exam is rather unremarkable. He was given ibuprofen for pain as well. Erythromycin ointment bilaterally. He clearly has a corneal abrasion on the left eye but he also has irritation to the right eye subjectively. He could have some aspect of photokeratitis as well from his welding. We will treat him with hydrocodone for pain erythromycin ointment for possible photokeratitis. He should have 90% improvement in 24 hours and 100% in 48 hours if he is not following this he should follow-up with optometry or ophthalmology. He is understanding of this and his questions are answered. Departure - Departure Time of Disposition: 01:57 Disposition: Home, Self-Care 01 Clinical Impression: Corneal abrasion Qualifiers: Encounter type: initial encounter Laterality: left Qualified Code(s): S05.02XA - Injury of conjunctiva and corneal abrasion without foreign body, left eye, initial encounter - Discharge Information Prescriptions: Erythromycin Base [Erythromycin 0.5% Ophth Oint] 1 applic OP Q4HR #1 tube Instructions: Corneal Abrasion, [id number] Referrals: Radha Lopez PA-C [Primary Care Provider] - Forms: ED Department Discharge, ED Return to Work/School Form Additional Instructions: Tylenol and or Ibuprofen as needed for pain. Erythromyocin ointment to each eye every 4 hrs while awake for the next 5 days. RX sent to [facility]. Cool compresses to eyes for comfort. If pain not controlled with above. [place] 1 tablet every 6 hrs with food as needed for pain. Caution sedation. RX given to the patient. You should have 90% improvement in 24 hours and 100% in 48 hours. If you are not obtaining this please see optometry or opthamology. Return to the ED if new or worsening symptoms. Sepsis Event Note (ED) - Evaluation Sepsis Screening Result: No Definite Risk
== END 2021-03-26 02:15 | disposition home or self-care (01) ==
LOC: LL.ED 01:26
DX: S05.02XA Injury of conjunctiva and corneal abrasion without foreign body, left eye, initial encounter (principal); W22.8XXA Striking against or struck by other objects, initial encounter
CPT/HCPCS: 99283; A9270